=== PATIENT | female | born 1975 | race Caucasian/White ===

== ENCOUNTER → 2019-07-10 12:33 | Outpatient (CLI) | payer MEDICAID, SELFPAY ==
--- NOTE | 2019-07-10 12:39 | US_ITS ---
STUDY: THYROID ULTRASOUND REASON FOR EXAM: Female, 43 years old. ABNL LABS TECHNIQUE: Ultrasound evaluation of the thyroid was performed with real-time and static porter-scale imaging. COMPARISON: None. FINDINGS: RIGHT LOBE: The right lobe of the thyroid gland is enlarged and measures 6.5 cm x 2.1 cm x 2.4 cm. There is a heterogeneous echotexture. There are no demonstrated solid, cystic or complex lesions. LEFT LOBE: The left lobe of the thyroid gland is enlarged and measures 5.3 cm x 2 cm x 1.5 cm. There is a heterogeneous echotexture. There are no demonstrated solid, cystic or complex lesions. ISTHMUS: The isthmus measures 4.0 mm. 1.3 cm x 1 cm x 0.5 cm left cervical lymph node. The left parathyroid gland is seen. It measures 1.4 cm x 1.1 cm x 0.7 cm. US/Thyroid IMPRESSION: Enlargement of the thyroid gland with heterogeneous echotexture in both lobes. Electronically Signed: Eliseo Devine, at 13:38 EDT , Service support ,
== END ==
PROVIDERS: PCP Family Medicine; Referring Provider Family Medicine; Visit Provider Family Medicine
DX: R76.8 Other specified abnormal immunological findings in serum (principal)
CPT/HCPCS: 76536

== ENCOUNTER → 2019-07-26 10:25 | Outpatient (CLI) | payer MEDICAID, SELFPAY ==
[2019-07-23 15:17] VITALS: BMI 31.9
[2019-07-26 12:15] LABS: AST(SGOT) 18 U/L (15-37); Alanine Aminotransfer ALT/SGPT 26 U/L (13-56); Albumin, Serum 3.9 g/dL (3.2-5.0); Alkaline Phosphatase 69 U/L (45-117); Anion Gap 6 (5-15); BUN 15 mg/dL (7-18); BUN/Creat Ratio 21.8 RATIO (10-20); Calcium,Total 9.1 mg/dL (8.5-10.1); Chloride 106 mmol/L (98-107); Creatinine, Serum 0.69 mg/dL (0.55-1.02); EST Glomerular Filtration Rate 98 mL/min (>60); Est Glom Filt Rate - Afr Amer 118 mL/min (>60); Estradiol 11.5 pg/mL; Follicle Stimulating Hormone 66.9 mIU/mL; Globulin 3.8 g/dL (2.2-4.2); Glucose 84 mg/dL (74-106); Luteinizing Hormone 41.8 mIU/mL; Potassium 3.8 mmol/L (3.5-5.1); Protein, Total 7.7 g/dL (6.4-8.2); Sodium Level 139 mmol/L (136-145)
[2019-07-30 09:07] LABS: Testosterone, % Free 0.73 % (0.50-2.80); Testosterone, Free 0.07 ng/dL (0.10-0.85); Testosterone, Total 9 ng/dL (8-48)
[2019-07-30 19:59] LABS: DHEA Sulfate 63.9 ug/dL (41.2-243.7)
== END ==
PROVIDERS: PCP Family Medicine; Referring Provider Internal Medicine Endocrinology, Diabetes & Metabolism; Visit Provider Internal Medicine Endocrinology, Diabetes & Metabolism
DX: E06.3 Autoimmune thyroiditis (principal); N91.1 Secondary amenorrhea
CPT/HCPCS: 36415; 80053; 82533; 82627; 82670; 83001; 83002; 84402; 84403; 82626

== ENCOUNTER → 2019-08-08 11:12 | Outpatient (CLI) | payer MEDICAID, SELFPAY ==
[2019-07-23 15:17] VITALS: BMI 31.9
--- NOTE | 2019-08-08 11:14 | BD_ITS ---
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 COMPARISON: None. FINDINGS: Lumbar Spine (L1-L4): g/cm2 (1.106) / T-score (-0.5) / Z-score (-0.4) Findings are suggestive of normal bone density with a low fracture risk. Left Femur Total: g/cm2 (1.066) / T-score (0.5) / Z-score (0.8) Left Femoral Neck: g/cm2 (1.012) / T-score (-0.2) / Z-score (0.4) Right Femur Total: g/cm2 (1.018) / T-score (0.1) / Z-score (0.4) Right Femoral Neck: g/cm2 (0.962) / T-score (-0.5) / Z-score (0.1) BD/Dexa Bone Density Study IMPRESSION: The patient is considered normal as outlined below according to World Carlos Organization (WHO) criteria with a low fracture risk. Reference Information: The T-score is the number of standard deviations above or below the standard which is normal for young adults at their peak bone mineral density. The World Health Organization (WHO) interprets the T-scores as follows: Above -1 Normal bone density Between -1 and -2.5 Osteopenia Equal to / or below -2.5 Osteoporosis As a practical clinical guideline, osteopenia may be graded as follows: Mild -1 through -1.5 Moderate -1.6 through -2.0 Severe -2.1 through -2.4 The Z-score is the number of standard deviations above or below age-matched controls. A Z-score of less than -1.5 would be considered abnormal. References: 1. NIH Osteoporosis and Related Bone Diseases http://www.osteo.org 2. International Society for Clinical Densitometry http://www.iscd.org 3. National Osteoporosis Foundation http://www.nof.org Electronically Signed: Eliseo Devine, at 10:39 EDT , Service support ,
== END ==
PROVIDERS: PCP Family Medicine; Referring Provider Internal Medicine Endocrinology, Diabetes & Metabolism; Visit Provider Internal Medicine Endocrinology, Diabetes & Metabolism
DX: E28.319 Asymptomatic premature menopause (principal)
CPT/HCPCS: 77080

== ENCOUNTER → 2019-09-04 09:05 | Outpatient (CLI) | payer MEDICAID, SELFPAY ==
[2019-07-23 15:17] VITALS: BMI 31.9
[2019-09-04 13:20] LABS: T4 Free Direct 1.51 ng/dL (0.76-1.46); Thyroid Stim Hormone (TSH) 0.08 uIU/mL (0.358-3.74)
== END ==
PROVIDERS: PCP Family Medicine; Referring Provider Internal Medicine Endocrinology, Diabetes & Metabolism; Visit Provider Internal Medicine Endocrinology, Diabetes & Metabolism
DX: E06.3 Autoimmune thyroiditis (principal)
CPT/HCPCS: 36415; 84439; 84443

== ENCOUNTER → 2019-09-11 | Outpatient (CLI) | payer MEDICAID, SELFPAY ==
[2019-07-23 15:17] VITALS: BMI 31.9
== END | disposition home or self-care (01) ==
PROVIDERS: PCP Family Medicine; Visit Provider Obstetrics & Gynecology
DX: Z12.4 Encounter for screening for malignant neoplasm of cervix (principal)

== ENCOUNTER → 2019-10-07 13:11 | Outpatient (CLI) | payer MEDICAID, SELFPAY ==
[2019-07-23 15:17] VITALS: BMI 31.9
[2019-10-07 14:32] LABS: CRP, High Sensitivity Cardiac 1.23 mg/L
[2019-10-09 13:47] LABS: Vitamin D,25 Hydroxy 32.5 ng/mL
== END ==
PROVIDERS: PCP Family Medicine; Visit Provider Obstetrics & Gynecology
DX: R63.5 Abnormal weight gain (principal)
CPT/HCPCS: 36415; 82306; 86141

== ENCOUNTER → 2019-11-21 15:32 | Outpatient (CLI) | payer MEDICAID, SELFPAY ==
[2019-07-23 15:17] VITALS: BMI 31.9
[2019-11-21 17:07] LABS: T4 Free Direct 1.27 ng/dL (0.76-1.46); Thyroid Stim Hormone (TSH) 0.38 uIU/mL (0.358-3.74)
== END ==
PROVIDERS: PCP Family Medicine; Referring Provider Internal Medicine Endocrinology, Diabetes & Metabolism; Visit Provider Internal Medicine Endocrinology, Diabetes & Metabolism
DX: E06.3 Autoimmune thyroiditis (principal)
CPT/HCPCS: 36415; 84439; 84443

== ENCOUNTER → 2020-02-28 08:04 | Outpatient (CLI) | payer MEDICAID, SELFPAY ==
[2019-07-23 15:17] VITALS: BMI 31.9
[2020-02-28 12:17] LABS: T4 Free Direct 1.27 ng/dL (0.76-1.46); Thyroid Stim Hormone (TSH) 0.31 uIU/mL (0.358-3.74)
== END ==
PROVIDERS: PCP Family Medicine; Referring Provider Internal Medicine Endocrinology, Diabetes & Metabolism; Visit Provider Internal Medicine Endocrinology, Diabetes & Metabolism
DX: E06.3 Autoimmune thyroiditis (principal)
CPT/HCPCS: 36415; 84439; 84443

== ENCOUNTER 2022-03-28 11:11 | Emergency (ER) | payer MEDICAID, SELFPAY ==
[2022-03-28 11:11] VITALS: BP 156/93; PULSE 82; RESP 16; TEMP 36.6; O2SAT 100; BMI 33.2
--- NOTE | 2022-03-28 11:29 | ED.VIS.FALL ---
HPI HPI - Fall History of Present Illness Chief Complaint: Fall Detail of Chief Complaint: Injury right and left leg status post fall Informant: patient Occured/Mechanism Occurred: Hours Mechanism/Context: Yes trip Narrative: Patient fell down 2 steps and landed on concrete. Fall down steps #: To Usually ambulates: Without assistance Pain/Injury Location: Right and left leg Pain Location: lower extremity (Documented HPI narrative and physical exam) Quality of Pain: Dull and Aching Current Severity: Mild Maximum Severity: Moderate Worsened by: Movement and walking Relieved by: Rest Associated Symptoms Associated Symptoms: Negative for Parasthesias, Weakness, Loss of function, Inability to ambulate, Loss of consciousness or Amnesia Length of loss of consciousness: Not applicable Narrative Narrative: Patient is a 46-year-old woman who presents after falling down 2 steps. She drove her self to the emergency department. She complains of pain proximal right and left anterior lateral leg. She denies right or left knee pain. She denies right or left ankle pain. She denies feet pain. She is not on an anticoagulant. She denies prior injury. She is able to ambulate. Last tetanus is unknown. 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 Allergy/AdvReac Type Severity Reaction Status Date / Time No Known Allergies Allergy Verified 03/28/22 11:13 Family History Grandmother Diabetes Social History Smoking Status: Current every day smoker tobacco type: cigarettes alcohol intake: never substance use type: does not use what type of physical activity do you participate in: none ROS ROS ED Eyes Eyes: Denies blurry vision, change in vision or diplopia ENT ENT ED: Denies rhinorrhea or sore throat Cardiovascular Cardiovascular: Denies chest pain or palpitations Respiratory/Chest Respiratory/Chest: Denies cough, dyspnea or dyspnea on exertion Gastrointestinal Gastrointestinal: Denies nausea or vomiting Musculoskeletal Musculoskeletal: Reports other Details: Per HPI narrative ; Denies arthralgias, back pain, myalgias or neck pain Integumentary Reports Abrasions; Denies rash Neurologic Neurologic: Denies paresthesias Hematologic/Lymphatic Hematologic/Lymphatic: Denies easy bleeding or easy bruising EXAM Physical Exam Const Vital Signs: 03/28/22 11:11 Temperature 97.8 F Temperature Source Temporal Pulse Rate 82 Respiratory Rate 16 Blood Pressure 156/93 H Blood Pressure Mean 114 Pulse Ox 100 Oxygen Delivery Method Room Air Positive well nourished, well developed and obese Constitutional Narrative: Patient does not appear in distress. She is drinking coffee is in the room. General Appearance ED: well developed Nutritional Appearance: obese HEENT Reports normocephalic and TM's normal bilaterally HEENT Narrative: Ears normal. Nares patent. No epistaxis. No septal deviation hematoma. No dental trauma. Eyes PERRL and EOMs intact bilaterally General Eye ED: Negative for pale conjunctiva or scleral icterus Neck full ROM and no lymphadenopathy Resp normal respiratory effort and clear to auscultation bilaterally Cardio regular rate, regular rhythm, S1 normal heart sound, S2 normal heart sound and no murmurs Extremity Extremity Narrative: Patient has swelling and bruising right and left leg. There is pain palpation over the right fibular head and the proximal third left fibula. There is a bruise noted over the right knee. There is no pain the patient in the patella. There is no effusion bilaterally. There is no blinding of the patella bilaterally. There is no laxity with varus valgus stress testing bilaterally. She complains of pain with varus stressing bilaterally. There is no laxity with Nikolay's test. She has full extension and flexion. There is no pain or fullness in the popliteal fossa right or left. DP and PT pulse are palpable bilateral. There is no pain the patient over the lateral or medial malleolus of the right or left ankle. There is no pain the patient over the base of the fifth metatarsal right or left. Neuro oriented x3, CN's II-XII intact bilaterally, moves all extremities, no focal motor deficits and no sensory deficits noted Psych mental status grossly normal Skin Skin Narrative: Contusion noted right knee and anterior right leg with abrasion. There is also a contusion anterior left leg with abrasion left leg. There is no bruising over the patella/knee. MDM MDM MDM Narrative Medical decision making narrative: Tetanus was updated. X-ray of the right and left tibia were obtained. There is concern for possible fibular head fracture on the right and proximal third left fibular fracture. Per the knee Cavalier rule imaging of the right or left knee is not indicated or required. Patient was offered pain medicine which she declined. Radiography Diagnostic Testing: Clinical Impression(s) from Imaging Studies Tibia/Fibula X-Ray 03/28/22 11:37 IMPRESSION: Pretibial soft tissue swelling. Electronically Signed: Eliseo Devine MD at 12:19 EST , Tibia/Fibula X-Ray 03/28/22 11:37 IMPRESSION: Pretibial soft tissue swelling. Electronically Signed: Eliseo Devine MD at 12:20 EST , 2 view view of the right and left tibia were obtained. There is no evidence of fracture, subluxation dislocation or foreign body on the left. The right reveals no fracture, subluxation or dislocation. There is no effusion. These were independently reviewed and interpreted by me. Discharge Plan Triage Chief Complaint: Fall ED Provider: Aaron Yarbrough Dx/Rx/DC Orders Clinical Impression: Contusion of right lower leg, initial encounter, Contusion of left lower leg, initial encounter, Contusion of right knee, initial encounter, Abrasion of anterior right lower leg, Abrasion of anterior left lower leg, Injury due to fall Instructions: ED Abrasion, ED Contusion, Lower Extremity Primary Care Provider: Archana Montoya Referrals: Archana Montoya PA-C [Primary Care Provider] - As Needed Activity Restrictions/Additional Instructions: 1. Apply ice 6-8 times a day to your right and left leg 2. You will feel worse over the next 24 to 48 hours 3. You may be sore for 3 to 7 days. 4. You may take 4 Advil tablets every 8 hours for pain for the next 3 to 5 days. Disposition Disposition: Home, Self Care
--- NOTE | 2022-03-28 11:37 | RAD_ITS ---
STUDY: X-RAY - RIGHT TIBIA AND FIBULA REASON FOR EXAM: Female, 46 years old. Injury/Pain TECHNIQUE: 2 view(s) of the tibia and fibula were obtained. COMPARISON: None. FINDINGS: Normal visualized tibia. Normal visualized fibula. Pretibial soft tissue swelling. RAD/Tibia & Fibula 2 Views IMPRESSION: Pretibial soft tissue swelling. Electronically Signed: Eliseo Devine MD at 12:19 EST ,
--- NOTE | 2022-03-28 11:37 | RAD_ITS ---
STUDY: X-RAY - LEFT TIBIA AND FIBULA REASON FOR EXAM: Female, 46 years old. Pain due to a fall. TECHNIQUE: 2 view(s) of the tibia and fibula were obtained. COMPARISON: None. FINDINGS: Normal visualized tibia. Normal visualized fibula. Pretibial soft tissue swelling. RAD/Tibia & Fibula 2 Views IMPRESSION: Pretibial soft tissue swelling. Electronically Signed: Eliseo Devine MD at 12:20 EST ,
[2022-03-28] MEDS: Diphth,Pertuss(Acell),Tet Vac 0.5 ML Vial IM (11:49)
== END 2022-03-28 12:49 | disposition home or self-care (01) ==
PROVIDERS: Emergency Provider Emergency Medicine; PCP Family Medicine; Visit Provider Emergency Medicine
DX: S80.01XA Contusion of right knee, initial encounter (principal); S80.11XA Contusion of right lower leg, initial encounter; S80.12XA Contusion of left lower leg, initial encounter; W10.9XXA Fall (on) (from) unspecified stairs and steps, initial encounter; Z23 Encounter for immunization; F17.210 Nicotine dependence, cigarettes, uncomplicated
CPT/HCPCS: 73590; 90471; 90715; 99282

== ENCOUNTER 2022-10-28 21:58 | Emergency (ER) | payer MEDICAID, SELFPAY ==
[2022-10-28 21:59] VITALS: BP 142/90; PULSE 95; RESP 16; TEMP 36.4; O2SAT 100; BMI 35.2
--- NOTE | 2022-10-28 22:00 | RAD_ITS ---
INDICATION: PAIN EXAMINATION/TECHNIQUE: X-RAY - RIGHT XR Foot Min 3 Views 3 VIEWS COMPARISON: FINDINGS: BONES: Transverse fracture distal shaft second metatarsal, nondisplaced. JOINTS: No dislocation. SOFT TISSUES: Soft tissue swelling dorsally. RAD/Foot min 3 Views IMPRESSION: Acute nondisplaced second metatarsal fracture. Electronically Signed: Mabel Castaneda MD at 22:39 EDT ,
--- NOTE | 2022-10-28 22:53 | EDS_ITS ---
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 Home Medications oxycodone 5 mg capsule 5 mg PO Q6H PRN pain 3 days #12 caps 10/28/22 [Rx Last Taken Unknown] Allergy/AdvReac Type Severity Reaction Status Date / Time No Known Allergies Allergy Verified 10/28/22 21:59 Family History Grandmother Diabetes Social History Smoking Status: Current every day smoker tobacco type: cigarettes alcohol intake: never substance use type: does not use what type of physical activity do you participate in: none EXAM Physical Exam Const Vital Signs: 10/28/22 21:59 Temperature 97.5 F L Temperature Source Temporal Pulse Rate 95 Respiratory Rate 16 Blood Pressure 142/90 H Blood Pressure Mean 107 Pulse Ox 100 [facility] Narrative Medical decision making narrative: HISTORY OF PRESENT ILLNESS: 47-year-old female here with right foot pain. Notes she felt like her foot needed to give way 2 days ago. She states that since then she had pain worse with ambulation. REVIEW OF SYSTEMS: Pertinent positives: Right foot pain Pertinent negatives: Numbness or tingling PHYSICAL EXAM: Nursing triage notes reviewed, Vital signs reviewed Constitutional: please see mdm Extremities: Mild swelling over the dorsum of the right foot. TTP over dorsum of right foot. No obvious deformities. Compartments are soft Neuro: Intact sensation L1-S1 dermatomal distributions. Intact 5/5 strength in hip flexion (T12-L3). Knee extension (L2-L4). Ankle dorsiflexion (L4-L5). Ankle plantar flexion (S1). Great toe extension (L5). 2+ patellar and Achilles DTRs. Skin: No rash or lesions noted, no evidence of open fracture MEDICAL DECISION MAKING: Chief Complaint: Foot pain External records reviewed: No recent advanced imaging of the involved extremity ALL IMAGES (IF OBTAINED) HAVE BEEN PERSONALLY REVIEWED AND INTERPRETED BY JESUS CASTILLO. [facility] Narrative: Patient was hemodynamically stable, afebrile, nontoxic-appearing. I considered the following differential diagnosis: Foot fracture, dislocation, contusion X-ray was obtained and personally reviewed myself showed evidence of a second metatarsal fracture. Will place patient in splint have her follow with orthopedic surgery. Make the limb nonweightbearing. Will give crutches. We will give pain control for home-going. The patient and/or family, caregivers express understanding. The patient and/or family, caregivers agrees with the plan. Shared decision making: I will have a discussion with the patient and or visitors regarding risk/benefits of further testing or admission. They will be made aware of of the risk/benefits inherent in this decision they will be given the opportunity to voice understanding. Total critical care time today provided was at least 0 minutes. This excludes separately billable procedures. Critical care time (if documented) is secondary to the patient having high probability of clinically significant/life threatening deterioration in the patient's condition which required my urgent intervention. Radiography Chest X-Ray - ED: Read by ED Physician Diagnostic Testing: Clinical Impression(s) from Imaging Studies Foot X-Ray 10/28/22 22:00 IMPRESSION: Acute nondisplaced second metatarsal fracture. Electronically Signed: Mabel Castaneda MD at 22:39 EDT , X-ray of the right foot read and personally viewed myself shows evidence of a right second metatarsal fracture Procedures Lower Extremity Splints Lower Extremity Splint: Orthoglass Splint Fabrication: Pre-fabricated Location: Right Discharge Plan Triage Chief Complaint: Lower Extremity Injury ED Provider: Nii Jaime Dx/Rx/DC Orders Clinical Impression: Metatarsal bone fracture Instructions: ED Fracture, Foot Prescriptions: New oxycodone 5 mg capsule 5 mg PO Q6H PRN (Reason: pain) 3 Days Qty: 12 0RF Primary Care Provider: Archana Montoya Referrals: Joel Singh DO [Med Staff - Active Staff] - Activity Restrictions/Additional Instructions: Thank you for trusting us with your care today! Please take Tylenol (2 pills, 650 mg), ibuprofen (2 pills, 400 mg) every 6 hours as needed for pain and fever control. If the above regimen does not control your pain. Please take oxycodone as needed. Please return to the emergency department if your symptoms change or worsen. Specific you develop worsening pain, blue or purple discoloration involved extremity, extremity becomes cool to touch. Please follow with your orthopedic surgery for further outpatient evaluation and management. Disposition Disposition: Home, Self Care Discharge Date/Time: 10/29/22 00:19
== END 2022-10-29 00:19 | disposition home or self-care (01) ==
LOC: ED 10-29 00:09
PROVIDERS: Emergency Provider Emergency Medicine; PCP Family Medicine; Visit Provider Emergency Medicine
DX: S92.324A Nondisplaced fracture of second metatarsal bone, right foot, initial encounter for closed fracture (principal); X58.XXXA Exposure to other specified factors, initial encounter; F17.210 Nicotine dependence, cigarettes, uncomplicated
CPT/HCPCS: 73630; 99283